=== PATIENT | female | born 1985 ===

== ENCOUNTER → 2022-06-07 14:06 | Outpatient (BNVA) | payer OTHER, SELFPAY | PROVIDERS: PCP Internal Medicine; Visit Provider Nurse Practitioner Family | DX: G43.109 Migraine with aura, not intractable, without status migrainosus (principal); F07.81 Postconcussional syndrome; H53.9 Unspecified visual disturbance | CPT/HCPCS: 99212 ==

== ENCOUNTER 2023-10-21 19:13 | Emergency (ER) | payer OTHER, SELFPAY ==
--- NOTE | 2023-10-21 | ECG_ITS ---
Test Reason : intox Blood Pressure : / mmHG Vent. Rate : 072 BPM Atrial Rate : 072 BPM P-R Int : 164 ms QRS Dur : 080 ms QT Int : 424 ms P-R-T Axes : 066 081 061 degrees QTc Int : 464 ms Normal sinus rhythm Septal infarct , age undetermined Abnormal ECG No previous ECGs available Referred By: Generic ED Physician Electronically Signed By:Eamon Figueroa
[2023-10-21 19:48] VITALS: BP 103/60; PULSE 94; RESP 18; TEMP 36.8; O2SAT 100; BMI 21.7
[2023-10-21 20:41] LABS: MANUAL DIFF FLAG NO
[2023-10-21 20:42] LABS: Basophils Percent Auto 0.8 % (0-2); Eosinophils Absolute Auto 0.3 X10*3/uL (0.0-0.4); Eosinophils Percent Auto 5.7 % (0-4); Hematocrit 34.7 % (37.0-47.0); Hemoglobin 11.5 g/dl (12.0-16.0); Imm Gran Abs Auto 0.02 X10*3/uL (0.00-0.03); Imm Gran Pct Auto 0.4 % (0.0-0.4); Lymphocytes Absolute Auto 2.4 X10*3/uL (1.2-4.9); Lymphocytes Percent Auto 44.9 % (20-40); Mean Corpuscular HGB Conc 33.1 g/dl (31.0-35.0); Mean Corpuscular Hemoglobin 25.3 pg (27.0-33.0); Mean Corpuscular Volume 76.4 fL (80.0-98.0); Mean Platelet Volume 9.5 fL (9.4-12.3); Monocytes Absolute Auto 0.5 X10*3/uL (0.1-1.2); Monocytes Percent Auto 8.5 % (2-11); Neutrophils Absolute Auto 2.1 x10*3/uL (2.0-8.3); Neutrophils Percent Auto 39.7 % (45-73); Platelet Count 300 X10*3/uL (160-400); Red Blood Count 4.54 X10*6/uL (4.20-5.50); Red Cell Distribution Width 15.3 % (11.0-16.0); White Blood Count 5.3 X10*3/uL (4.8-10.8)
[2023-10-21 20:57] LABS: Alanine Aminotransferase 25 U/L (0-31); Albumin Level 3.9 g/dL (3.5-5.0); Alkaline Phosphatase 121 U/L (39-117); Anion Gap 13 (12-20); Aspartate Amino Transferase 41 U/L (5-31); Bilirubin Total 0.2 mg/dL (0.0-1.0); Blood Urea Nitrogen 8 mg/dL (9-16); Calcium 8.7 mg/dL (8.4-10.2); Carbon Dioxide 26 mmol/L (22-29); Chloride 107 mmol/L (96-108); Creatinine Clr Calc Pharmacy 83.8; Estimated Glomerular Filt Rate > 60; Glucose Random 108 mg/dL (60-115); Potassium 3.4 mmol/L (3.3-5.1); Sodium 143 mmol/L (135-145); Total Protein 7.4 g/dL (6.5-8.0)
[2023-10-21 22:11] VITALS: PULSE 92
--- NOTE | 2023-10-21 22:12 | PC.NURSE ---
ciwa 0 cows 2. pt reported some body aches however no other sx. awaiting primary eval by ed provider. water provided per request.
[2023-10-22] VITALS (7 sets, daily range): BP systolic 116–159; BP diastolic 74–92; PULSE 61–82; RESP 16–18; TEMP 36.6–37.1; O2SAT 97–100
--- NOTE | 2023-10-22 00:39 | MHC.EDTECH ---
PT RESTING IN BED RESPIRATIONS EVEN AND UNLABORED PT EXPRESSES NO OTHER NEEDS AT THIS TIME PLAN OF CARE ONGOING
--- NOTE | 2023-10-22 01:53 | ED.ALCOHOL ---
HPI - Alcohol General Chief Complaint: ETOH/Substance Use Stated Complaint: alchohol treatment Time Seen by Provider: 10/21/23 22:23 Source: patient Mode of arrival: ambulatory Limitations: no limitations History of Present Illness HPI narrative: Patient comes to the emergency room requesting alcohol detox. Patient states that she started a drinker, drinks up to a gal of liquor a day. Patient drank prior to arrival to emergency room. Patient denies SI or HI, patient denies using any other drugs. Related Data Previous Rx's Medication Instructions Recorded amitriptyline 25 mg tablet 12.5 - 25 mg (0.5 - 1 x 25 mg) PO 06/07/22 BEDTIME 30 days #30 tabs ubrogepant 100 mg tablet (Ubrelvy) 50 - 100 mg (0.5 - 1 x 100 mg) PO 06/25/22 ONCE PRN migraine headache 30 days #16 tabs erenumab-aooe 140 mg/mL 140 mg subcut .COMPLEX 30 days #1 01/03/23 subcutaneous auto-injector mL (Aimovig Autoinjector) Allergies Allergy/AdvReac Type Severity Reaction Status Date / Time Seasonal Allergies Allergy Mild Unknown Verified 10/21/23 19:53 Review of Systems Review of Systems: Constitutional : No Weight loss, No Fever, No Chills, No Night Sweats, No Fatigue, No Malaise ENT/Mouth : No Hearing loss, No Ear Pain, No Nasal Congestion, No Sinus Pain, No Hoarseness, No sore throat, No Rhinorrhea, No Swallowing Difficulty Eyes: No Eye Pain, No Swelling, No Redness, No Foreign Body, No Discharge, No Vision Changes Cardiovascular : No Chest Pain, No SOB, No Dyspnea on Exertion, No Orthopnea, No Edema, No Palpitations Respiratory : No Cough, No Sputum, No Wheezing, No Smoke Exposure, No Dyspnea Gastrointestinal : No Nausea, No Vomiting, No Diarrhea, No Constipation, No abdominal Pain, No Hematochezia, No Melena Genitourinary : no irregular bleeding, No Dysuria, No Urinary Frequency, No Hematuria, No Urinary Incontinence, No Urgency, No Flank Pain, No Urinary Flow Changes, No Hesitancy Musculoskeletal : No joint pain, No Myalgias, No Joint Swelling Skin : No Skin Lesions, No rash Neuro : No Weakness, No Numbness, No Paresthesias, No Loss of Consciousness, No Dizziness, No Headache Psych : No Anxiety/Panic, No Depression, No SI/HI/AH/VH, admits to alcohol abuse Heme/Lymph: No Bruising, No Bleeding,No Lymphadenopathy Endocrine : No Polyuria, No Polydipsia, No Temperature Intolerance [facility] Past Medical History Medical History HTN (hypertension) Sleep difficulties Depression delivery delivered Social History Social History (Updated 06/07/22 @ 14:20 by Nancy Davis CMA) Alcohol intake: current Alcohol intake frequency: holidays/special occasions only Alcohol type: hard liquor Patient Tobacco Use Status: Former Tobacco user Quit Date: 05/24/22 Smoked in Last 30 Days: Yes Use of substances other than those prescribed or required for medical reasons: Yes Substance Use Type: Crack/Cocaine and Marijuana Advance Directives: No Advance Directives Information Provided: No Physical Exam ED Vital Signs: Vital Signs - 24 hr 10/21/23 19:48 10/22/23 00:14 Temperature 98.2 F 98.2 F Pulse Rate 94 82 Respiratory Rate 18 17 Blood Pressure 103/60 116/74 Pulse Oximetry 100 98 Oxygen Delivery Method Room Air Room Air BMI result Body Mass Index 21.7 Const Other: Appearance: Alert. Oriented X3. Intoxicated Eyes: Pupils equal, round and reactive to light. ENT: Pharynx normal. Neck: Normal inspection. Neck supple. No lymph nodes noted. No crepitus CVS: Normal heart rate and rhythm. Pulses normal. Normal S1 and S2 Respiratory: No respiratory distress. Breath sounds normal. No Wheezing. No rales Abdomen: Soft and nontender. No rigidity. No distention. Skin: Skin warm and dry. Normal skin color. Normal skin turgor. Extremities: No lower extremity edema. No Lacerations. No Rash Neuro: Oriented X 3. No motor deficit. No sensory deficit. Moving all extremities. No slurred speech. CN 2 through 12 grossly intact Psych: calm, cooperative, intoxicated Course Course Course Narrative: -patient is calm, cooperative, intoxicated but coherent, requesting help for detox Medical Decision Making Medical Decision Making [facility] Narrative: -my interpretation of labs: Hematology at baseline, chemistry unremarkable, AST and alk-phos mildly bumped -care team consult pending -physician observation started at 00:05 -patient is not SI or HI, no need for a section 12. Differential Diagnosis Differential Diagnoses: The differential diagnosis associated with the presentation includes (Alcohol abuse, polysubstance abuse, anxiety, depression) Admission/Observation Consideration of admission/observation: Escalation of care including admission/observation considered (Patient is under physician observation, waiting for the care team to determine patient's disposition.) Lab Data 10/21/23 20:38 10/21/23 20:38 Labs: Lab Results 10/21/23 Range/Units 20:38 WBC 5.3 (4.8-10.8) X10*3/uL RBC 4.54 (4.20-5.50) X10*6/uL Hgb 11.5 L (12.0-16.0) g/dl Hct 34.7 L (37.0-47.0) % MCV 76.4 L (80.0-98.0) fL MCH 25.3 L (27.0-33.0) pg MCHC 33.1 (31.0-35.0) g/dl RDW 15.3 (11.0-16.0) % Plt Count 300 (160-400) X10*3/uL MPV 9.5 (9.4-12.3) fL Immature Gran % (Auto) 0.4 (0.0-0.4) % Neut % (Auto) 39.7 L (45-73) % Lymph % (Auto) 44.9 H (20-40) % [place] % (Auto) 8.5 (2-11) % Eos % (Auto) 5.7 H (0-4) % Baso % (Auto) 0.8 (0-2) % Lymph # (Auto) 2.4 (1.2-4.9) X10*3/uL [place] # (Auto) 0.5 (0.1-1.2) X10*3/uL Eos # (Auto) 0.3 (0.0-0.4) X10*3/uL Baso # (Auto) 0.0 (0.0-0.2) X10*3/uL Abs Immat Gran (auto) 0.02 (0.00-0.03) X10*3/uL Absolute Neuts (auto) 2.1 (2.0-8.3) x10*3/uL Absolute Nucleated RBC 0.000 (0.0-0.012) X10*3/uL Nucleated RBC % (auto) 0.0 (0.0-0.2) /100WBC Sodium 143 (135-145) mmol/L Potassium 3.4 (3.3-5.1) mmol/L Chloride 107 (96-108) mmol/L Carbon Dioxide 26 (22-29) mmol/L Anion Gap 13 (12-20) BUN 8 L (9-16) mg/dL Creatinine 0.68 (0.5-1.4) mg/dL Estim Creat Clear Calc 83.8 Estimated GFR > 60 Random Glucose 108 (60-115) mg/dL Calcium 8.7 (8.4-10.2) mg/dL Total Bilirubin 0.2 (0.0-1.0) mg/dL AST 41 H (5-31) U/L ALT 25 (0-31) U/L Alkaline Phosphatase 121 H (39-117) U/L Total Protein 7.4 (6.5-8.0) g/dL Albumin 3.9 (3.5-5.0) g/dL Discharge Plan Discharge Clinical Impression: Alcohol abuse Patient Disposition: Still a Patient Prescriptions: No Action Ubrelvy 100 mg tablet 50 - 100 mg PO ONCE PRN (Reason: migraine headache) 30 Days Qty: 16 3RF Rx Instructions: take at onset of migraine, may repeat in 2hrs (may take w/ Ibuprofen) Aimovig Autoinjector 140 mg/mL auto-injector 140 mg subcut .COMPLEX 30 Days Qty: 1 11RF Rx Instructions: 140 mg subcut monthly; amitriptyline 25 mg tablet 12.5 - 25 mg PO BEDTIME 30 Days Qty: 30 3RF
[2023-10-22 02:16] LABS: Ethanol 174 mg/dL
--- NOTE | 2023-10-22 07:33 | PC.NURSE ---
pt currently resting on stretcher in no apparent distress at this time w/ her eyes closed. no sob/wob noted. respirations even and unlabored. CARE team eval remains pending at this time. plan of care ongoing.
--- NOTE | 2023-10-22 09:48 | MHC.RECOVRN ---
Addendum entered by Kasey Segovia 10/22/23 11:46: Met with pt to follow up after referral placed to [facility]. Pt laying down, awake, alert, easily engages in conversation, appears comfortable. Pt reports alcohol use, 1-3 gallons daily, vodka, rum, whatever. Pt reports desire for local ATS only. Educated pt on process, pt denies questions or concerns. Awaiting notification on bed availability from [facility]. RN aware. Original Note: Pts referral sent to [facility] ATS.
--- NOTE | 2023-10-22 10:23 | PC.NURSE ---
vss and up to date. urine obtained/sent to lab. updated CIWA = 7. pt speaking w/ swimming coach or instructor PRATIMA Parks at this time. pt aware of plan of care going forward. resting comfortably on stretcher in no apparent distress. respirations remain even and unlabored. plan of care ongoing.
[2023-10-22 11:42] LABS: UPreg QC Valid YES; Urine Pregnancy NEGATIVE (NEGATIVE)
[2023-10-22 11:44] LABS: WBC Urine 0-5 /HPF (0-5)
[2023-10-22 11:46] LABS: Bacteria Urine 1+ (None Seen); Hyaline Casts Urine 0-2 /LPF (0-2)
[2023-10-22 11:48] LABS: Appearance Urine Cloudy; Color Urine Orange; Glucose Urine UA Negative (Negative); Leukocyte Esterase Urine Small (1+) (Negative); Nitrite Urine Positive (Negative); Specific Gravity - Urine >= 1.030 (1.005-1.025); UACC Culture Trigger YES; UMIC TRIGGER UACC YES; Urine Blood Large (3+) (Negative); Urine Ketones Trace mg/dL (Negative); Urine Protein 30 (1+) mg/dL (Neg-Trace)
[2023-10-22 13:18] LABS: Amphetamine Screen Urine Not Detected (Not Detect); Barbiturates, Urine Not Detected (Not Detect); Benzodiazepines Screen Urine Not Detected (Not Detect); Cannabinoid Screen Urine POSITIVE (Not Detect); Cocaine Screen Urine POSITIVE (Not Detect); Fentanyl, urine Not Detected (Not Detect); Opiate Screen Urine Not Detected (Not Detect); Phencyclidine Screen Urine Not Detected (Not Detect)
--- NOTE | 2023-10-22 14:46 | MHC.RECOVRN ---
Met with pt to inform there is no bed availability today at [facility]. Pt provided with resources, including [facility] information. Pt encouraged to present as walk in at 8AM if desired. Pt denies questions or concerns for t/w. Provider and RN aware.
[2023-10-22] MEDS: chlordiazePOXIDE HCl 25 MG CAPSULE PO (14:59)
--- NOTE | 2023-10-22 15:27 | PC.NURSE ---
vss and up to date prior to d/c. updated CIWA = 5.
== END 2023-10-22 15:29 | disposition home or self-care (01) ==
PROVIDERS: Emergency Provider Emergency Medicine
DX: F10.10 Alcohol abuse, uncomplicated (principal); Y90.9 Presence of alcohol in blood, level not specified; I10 Essential (primary) hypertension
CPT/HCPCS: 36415; 80053; 80307; 81001; 81025; 85025; 87086; 93005; 99285

== ENCOUNTER → 2023-10-21 20:58 | Outpatient (BNV) | payer OTHER, SELFPAY | PROVIDERS: Emergency Provider Emergency Medicine; Visit Provider Internal Medicine Cardiovascular Disease | DX: R94.31 Abnormal electrocardiogram [ECG] [EKG] (principal) | CPT/HCPCS: 93010 ==

== ENCOUNTER 2025-05-04 09:42 | Emergency (ER) | payer OTHER, SELFPAY ==
[2025-05-04] VITALS (7 sets, daily range): BP systolic 142–203; BP diastolic 74–101; PULSE 74–82; RESP 14–20; TEMP 36.3–36.9; O2SAT 96–99; BMI 31.5
--- NOTE | ~2025-05-04 | CT_ITS ---
EXAMINATION: CT ABDOMEN AND PELVIS WITH CONTRAST CLINICAL INFORMATION: Right upper quadrant pain. Suprapubic pain. COMPARISON: None available. TECHNIQUE: Multidetector volumetric images were obtained from the superior aspect of the liver through the pubic symphysis following administration 85 mL of Omnipaque 350 intravenous contrast. Sagittal and coronal reformatted images were obtained on the technologist's workstation. Oral contrast: No This CT examination was performed using dose optimization techniques as appropriate, variously including the following: *Automated exposure control *Adjustment of mA and/or kV according to patient size (this includes techniques or standardized protocols for targeted exams where dose is matched to indication/reason for exam; i.e. extremities or head) *Use of iterative reconstruction technique FINDINGS: LUNG BASES: The visualized lung bases are unremarkable. LIVER, GALLBLADDER, AND BILIARY TREE: Right lobe measures 16.7 cm. No focal lesions. No biliary duct dilatation. Gallbladder appears unremarkable. PANCREAS: Unremarkable. No acute inflammatory changes. SPLEEN: Unremarkable. ADRENAL GLANDS: Unremarkable. KIDNEYS AND URETERS: Symmetric enhancement. No hydronephrosis. No ureteral or renal calculi. Small hypodense right renal lesion, probable cyst. BLADDER: Unremarkable. GASTROINTESTINAL TRACT: Nonobstructive bowel gas pattern. Scattered colonic diverticuli. No colonic wall thickening or pericolonic inflammatory changes. Appendix appears unremarkable. No free fluid. No free air. ABDOMINAL WALL: No significant hernia is appreciated. LYMPH NODES: No pathologically enlarged lymph nodes. VASCULAR: Normal caliber aorta. Hepatic and portal veins are enhancing. PELVIC VISCERA: Unremarkable. OSSEOUS STRUCTURES: No aggressive bony lesions. CT/CT abdomen pelvis w IV con IMPRESSION: * No acute intra-abdominal findings identified. Cause of the patient's symptoms has not been determined. Follow-up imaging as clinically indicated. * Appendix appears unremarkable. * Additional findings as above. Fleischner guidelines were followed. Electronically signed by: Serge Vargas MD 05/04/2025 12:03 PM EDT
--- NOTE | ~2025-05-04 | XR_ITS ---
EXAMINATION: XR CHEST CLINICAL INFORMATION: CP COMPARISON: None available. TECHNIQUE: 2 views of the chest were obtained. FINDINGS: The cardiac, hilar, and mediastinal contours are normal. The lungs are clear bilaterally. There is no pneumothorax or pleural effusion. There is no focal osseous or soft tissue abnormality. XR/XR chest 2V IMPRESSION: Normal chest. Electronically signed by: Jerod Knapp MD 05/04/2025 03:19 PM EDT
[2025-05-04 10:17] LABS: MANUAL DIFF FLAG NO
[2025-05-04 10:18] LABS: Hematocrit 35.6 % (37.0-47.0); Hemoglobin 12.1 g/dl (12.0-16.0); Imm Gran Abs Auto 0.01 X10*3/uL (0.00-0.03); Imm Gran Pct Auto 0.1 % (0.0-0.4); Lymphocytes Absolute Auto 1.6 X10*3/uL (1.2-4.9); Mean Corpuscular HGB Conc 34.0 g/dl (31.0-35.0); Mean Corpuscular Hemoglobin 24.9 pg (27.0-33.0); Mean Corpuscular Volume 73.3 fL (80.0-98.0); NRBC Abs Auto 0.000 X10*3/uL (0.0-0.012); NRBC Pct Auto 0.0 /100WBC (0.0-0.2); Platelet Count 250 X10*3/uL (160-400); Red Blood Count 4.86 X10*6/uL (4.20-5.50); White Blood Count 7.6 X10*3/uL (4.8-10.8)
--- NOTE | 2025-05-04 10:25 | ED.GENADULT ---
HPI - General Adult General Chief complaint: Abdominal Pain Stated complaint: asthma, abdominal pain Time Seen by Provider: 05/04/25 10:24 Source: patient and RN notes reviewed Mode of arrival: ambulatory Limitations: no limitations History of Present Illness HPI narrative: 40 yo female with PMH of HTN, migraine with aura, asthma, and autoimmune disorder presents to the ED with nausea, vomiting, diarrhea, and diffuse abdominal pain since Sunday (05/01/25). Patient reports inability to tolerate oral intake, including water. Patient also notes foul-smelling urine and chills. Denies fever, hematemesis, dark stool, urinary frequency, urgency, or burning with urination. Additionally reports mild shortness of breath and chest discomfort. No recent travel, surgeries, or sick contacts. Related Data Previous Rx's ?Medication ?Instructions ?Recorded amitriptyline 25 mg tablet 12.5 - 25 mg (0.5 - 1 x 25 mg) PO 06/07/22 BEDTIME 30 days #30 tabs ubrogepant 100 mg tablet (Ubrelvy) 50 - 100 mg (0.5 - 1 x 100 mg) PO 06/25/22 ONCE PRN migraine headache 30 days #16 tabs erenumab-aooe 140 mg/mL 140 mg subcut .COMPLEX 30 days #1 01/03/23 subcutaneous auto-injector mL (Aimovig Autoinjector) ondansetron 4 mg disintegrating 4 mg PO Q6H PRN nausea and 05/04/25 tablet vomiting #10 tabs Allergies Allergy/AdvReac Type Severity Reaction Status Date / Time Seasonal Allergies Allergy Mild Unknown Verified 05/04/25 10:01 Review of Systems Review of Systems: Yes all other systems are reviewed and are negative Constitutional: Constitutional: Reports as per HPI [facility] Past Medical History Medical History HTN (hypertension) Sleep difficulties Depression delivery delivered Social History Social History (Updated 06/07/22 @ 14:20 by Nancy Davis CMA) Alcohol intake: current Alcohol intake frequency: holidays/special occasions only Alcohol type: hard liquor Patient Tobacco Use Status: Former Tobacco user Substance Use Type: Crack/Cocaine and Marijuana Physical Exam ED Vital Signs: Vital Signs - 24 hr 05/04/25 10:00 05/04/25 12:09 05/04/25 14:00 Temperature 97.3 F 98.2 F Pulse Rate 79 82 82 Respiratory Rate 20 16 14 Blood Pressure 203/86 H 146/78 H 149/88 H Pulse Oximetry 99 96 99 Oxygen Delivery Method Room Air Room Air Room Air 05/04/25 14:32 05/04/25 14:35 05/04/25 14:36 Temperature Pulse Rate 76 80 74 Respiratory Rate Blood Pressure 145/74 H 144/81 H 143/101 H Pulse Oximetry Oxygen Delivery Method BMI result Body Mass Index 31.5 Const General: alert and awake Orientation/consciousness: patient oriented x3 Limitations: no limitations HENMT Head: Yes normal to inspection, Yes normocephalic and Yes atraumatic Ears: hearing grossly normal bilaterally General nose exam: Normal external nose present Face and sinus: Yes normal facial exam Mouth: Normal oral and palatal mucosa present, oropharynx normal and moist mucous membranes Throat: Yes posterior oropharynx normal Eyes General: appearance normal, both eyes and all related structures Eyelids: Yes eyelids normal Conjunctivae: conjunctivae normal Sclerae: sclerae normal Pupils: Equal, round and reactive pupils present EOM: EOMs intact bilaterally Neck Neck: Yes normal visual inspection, Yes full ROM and Yes no lymphadenopathy Lymphatic: no lymphadenopathy noted Chest Chest palpation & inspection: normal inspection of the chest Resp Effort & Inspection: normal respiratory effort and able to speak in complete sentences Auscultation: clear to auscultation bilaterally, no crackles, no rales, no rhonchi and no wheezes Cardio Rate: regular rate Rhythm: regular rhythm Heart sounds: S1 normal heart sound present and S2 normal heart sound present GI Inspection: Yes normal to inspection Palpation (GI): Soft to palpation and Tenderness to palpation present (GI) Auscultation: normal bowel sounds Skin General skin exam: no rashes or lesions noted Trauma: no lacerations or abrasions Wounds: no wounds Neuro General: patient oriented x3 Cranial nerves: Yes Equal, round and reactive pupils present Extrem General: Yes normal to inspection Right upper extremity: normal to inspection Left upper extremity: normal to inspection Right lower extremity: normal to inspection Left lower extremity: normal to inspection Medications Administered Discontinued Medications Generic Name Dose Route Start Last Admin Trade Name Freq PRN Reason Stop Dose Admin Sodium Chloride 1,000 mls @ 999 mls/hr 05/04/25 10:55 05/04/25 12:33 Ns IV 10/06/25 11:55 Infused .Q1H1M ONE Infusion Acetaminophen 1,000 mg in 100 mls @ 400 mls/hr 05/04/25 10:55 05/04/25 11:33 Ofirmev IV 05/04/25 11:09 Infused ONCE ONE Infusion Iohexol 100 ml 05/04/25 11:33 05/04/25 11:34 Iohexol 350 Mg/Ml 100 Ml Infus..Btl IV 05/04/25 11:34 85 ml ONCE ONE Administration Ondansetron HCl 4 mg 05/04/25 10:55 05/04/25 11:18 Ondansetron Hcl 4 Mg/2 Ml Vial IVPUSH 05/04/25 10:56 4 mg ONCE ONE Administration Ondansetron HCl 4 mg 05/04/25 12:33 05/04/25 12:56 Ondansetron Hcl 4 Mg/2 Ml Vial IVPUSH 05/04/25 12:34 4 mg ONCE ONE Administration Medical Decision Making Medical Decision Making MDM Narrative: 40 yo female with PMH of HTN, migraine with aura, asthma, and autoimmune disorder presents to the ED with several days of nausea, vomiting, diarrhea, and diffuse abdominal tenderness. Most likely diagnosis is viral gastroenteritis given the combination of nausea, vomiting, diarrhea, abdominal pain, and inablity to tolerative oral fluids. Urinary tract infection or pyelonephritis also considered given foul-smelling urine and abdominal pain. Electrolyte imbalance considered due to persistent vomiting and poor intake. Asthma exacerbation was considered but less likely as respiratory exam and oxygenation are WNL. Intra-abdominal pathology such as cholecystitis, appendicitis, or bowel obstruction considered but less likely given different rather than localized pain and ongoing diarrhea. 12:33 PM 05/04/2025 (Nakia Adorno PA-C): Patient re-evaluated, feeling better however still continues to have some nausea. Labs returned, she has no leukocytosis, stable H&H, chemistry with no significant electrolyte derangement. Urine does not appear to be infected. CT abdomen and pelvis revealed no acute findings. Will treat with more IV antiemetics. We will continue to monitor. Pt feeling much better, tolerating PO. Overall workup reassuring. Given return precautions. Stable for d.c Differential Diagnosis Differential Diagnoses: The differential diagnosis associated with the presentation includes see above Admission/Observation Consideration of admission/observation: Escalation of care including admission/observation considered Lab Data [facility] Lab Attestation statement: I reviewed the patient's lab results. see mdm 05/04/25 10:12 05/04/25 10:12 Labs: Lab Results 05/04/25 05/04/25 Range/Units 10:12 11:10 WBC 7.6 (4.8-10.8) X10*3/uL RBC 4.86 (4.20-5.50) X10*6/uL Hgb 12.1 (12.0-16.0) g/dl Hct 35.6 L (37.0-47.0) % MCV 73.3 L (80.0-98.0) fL MCH 24.9 L (27.0-33.0) pg MCHC 34.0 (31.0-35.0) g/dl RDW 14.4 (11.0-16.0) % Plt Count 250 (160-400) X10*3/uL MPV 9.3 L (9.4-12.3) fL Immature Gran % (Auto) 0.1 (0.0-0.4) % Neut % (Auto) 67.1 (45-73) % Lymph % (Auto) 21.4 (20-40) % [place] % (Auto) 5.4 (2-11) % Eos % (Auto) 5.3 H (0-4) % Baso % (Auto) 0.7 (0-2) % Lymph # (Auto) 1.6 (1.2-4.9) X10*3/uL [place] # (Auto) 0.4 (0.1-1.2) X10*3/uL Eos # (Auto) 0.4 (0.0-0.4) X10*3/uL Baso # (Auto) 0.1 (0.0-0.2) X10*3/uL Abs Immat Gran (auto) 0.01 (0.00-0.03) X10*3/uL Absolute Neuts (auto) 5.1 (2.0-8.3) x10*3/uL Absolute Nucleated RBC 0.000 (0.0-0.012) X10*3/uL Nucleated RBC % (auto) 0.0 (0.0-0.2) /100WBC Sodium 138 (135-145) mmol/L Potassium 3.9 (3.3-5.1) mmol/L Chloride 106 (96-108) mmol/L Carbon Dioxide 27 (22-29) mmol/L Anion Gap 9 L (12-20) BUN 17 H (9-16) mg/dL Creatinine 0.65 (0.5-1.4) mg/dL Estim Creat Clear Calc 105.9 Estimated GFR > 60 Random Glucose 83 (60-115) mg/dL Calcium 8.3 L (8.4-10.2) mg/dL Magnesium 1.9 (1.6-2.6) mg/dL Total Bilirubin 0.7 (0.0-1.0) mg/dL AST 40 H (5-31) U/L ALT 28 (0-31) U/L Alkaline Phosphatase 87 (39-117) U/L Total Protein 7.2 (6.5-8.0) g/dL Albumin 3.9 (3.5-5.0) g/dL Beta HCG, Quant < 2 mIU/mL Urine Color Yellow Urine Appearance Clear Urine pH >= 9.0 (5.0-9.0) Ur Specific [place] 1.025 (1.005-1.025) Urine Protein Trace (Neg-Trace) mg/dL Urine Glucose (UA) Negative (Negative) mg/dL Urine Ketones Negative (Negative) mg/dL Urine Blood Negative (Negative) Urine Nitrite Negative (Negative) Ur Leukocyte Esterase Negative (Negative) Urine RBC 0-2 (0-2) /HPF Urine WBC 0-5 (0-5) /HPF Ur Squamous Epith Cells 0-2 (0-2) /HPF Urine Bacteria None Seen (None Seen) Hyaline Casts 0-2 (0-2) /LPF Urine Test NEGATIVE (NEGATIVE) Independent Interpretation I performed an independent interpretation of an: EKG Interpretation: EKG NSR at 69bpm, ME interval 168, QT/QTC 402/430. No STEMI Radiology Impression Discussion of test interpretation with radiology: I have reviewed the radiologist's reading. Radiologist Impression: [address] [address] XRay Report Signed Patient: Merle Khalil MR#: [id number] : 1985 Acct:[id number] Age/Sex: 40 / F ADM Date: 05/04/25 Loc: HO.ED Attending Dr: Ordering Physician: Nakia Adorno Date of Service: 05/04/25 Procedure(s): XR chest 2V Accession Number(s): [id number] cc: [facility]; Nakia Adorno~ Reason for Exam: CP EXAMINATION: XR CHEST CLINICAL INFORMATION: CP COMPARISON: None available. TECHNIQUE: 2 views of the chest were obtained. FINDINGS: The cardiac, hilar, and mediastinal contours are normal. The lungs are clear bilaterally. There is no pneumothorax or pleural effusion. There is no focal osseous or soft tissue abnormality. XR/XR chest 2V IMPRESSION: Normal chest. Electronically signed by: Jerod Knapp MD 05/04/2025 03:19 PM EDT RP Dictated By: Jerod Knapp MD CT/CT abdomen pelvis w IV con IMPRESSION: * No acute intra-abdominal findings identified. Cause of the patient's symptoms has not been determined. Follow-up imaging as clinically indicated. * Appendix appears unremarkable. * Additional findings as above. Fleischner guidelines were followed. Electronically signed by: Serge Vargas MD 05/04/2025 12:03 PM EDT RP Dictated By: Serge Vargas MD Discharge Plan Discharge Clinical Impression: Nausea & vomiting Patient Disposition: Home, Self-Care Instructions: Acute Nausea and Vomiting (ED) Additional Instructions: You were seen in the emergency department due to nausea, vomiting, and diarrhea. Your workup today was reassuring. Your CAT scan was normal. Your urine does not appear to be infected. You may have gotten the GI bug or you may have eaten some unusual food that caused you to have the symptoms. Stick to a bland diet over the next couple of days. Avoid spicy or fried foods. Avoid dairy. Sticking to a diet consisting of bananas, rice, applesauce, toast can help. Advance your diet as tolerated. Please drink plenty of fluids get plenty of rest. Take Zofran as needed for nausea. If any new or worsening symptoms occur including but not limited to severe chest pain, inability to eat or drink secondary to persistent nausea and vomiting, please return for re-evaluation. Prescriptions: New ondansetron 4 mg tablet,disintegrating 4 mg PO Q6H PRN (Reason: nausea and vomiting) Qty: 10 0RF No Action Ubrelvy 100 mg tablet 50 - 100 mg PO ONCE PRN (Reason: migraine headache) 30 Days Qty: 16 3RF Rx Instructions: take at onset of migraine, may repeat in 2hrs (may take w/ Ibuprofen) Aimovig Autoinjector 140 mg/mL auto-injector 140 mg subcut .COMPLEX 30 Days Qty: 1 11RF Rx Instructions: 140 mg subcut monthly; amitriptyline 25 mg tablet 12.5 - 25 mg PO BEDTIME 30 Days Qty: 30 3RF Stand Alone Forms: Work/School Release Interventions: ED Discharge Assessment Last Done: 05/04/25 15:51 Discharge Date/Time: 05/04/25 15:53 Print Language: Persian
[2025-05-04 10:31] LABS: Alanine Aminotransferase 28 U/L (0-31); Albumin Level 3.9 g/dL (3.5-5.0); Alkaline Phosphatase 87 U/L (39-117); Anion Gap 9 (12-20); Aspartate Amino Transferase 40 U/L (5-31); Blood Urea Nitrogen 17 mg/dL (9-16); Calcium 8.3 mg/dL (8.4-10.2); Carbon Dioxide 27 mmol/L (22-29); Chloride 106 mmol/L (96-108); Creatinine Clr Calc Pharmacy 105.9; Estimated Glomerular Filt Rate > 60; Potassium 3.9 mmol/L (3.3-5.1); Sodium 138 mmol/L (135-145); Total Protein 7.2 g/dL (6.5-8.0)
--- NOTE | 2025-05-04 10:48 | ECG_ITS ---
Test Reason : CHEST PAIN Blood Pressure : */* mmHG Vent. Rate : 69 BPM Atrial Rate : 69 BPM P-R Int : 168 ms QRS Dur : 72 ms QT Int : 402 ms P-R-T Axes : 39 63 26 degrees QTcB Int : 430 ms Normal sinus rhythm Normal ECG When compared with ECG of 21-Oct-2023 20:58, Criteria for Septal infarct are no longer Present Referred By: Nakia Adorno Electronically Signed By: LONNIE JULIAN MD
[2025-05-04 11:19] LABS: Appearance Urine Clear; Glucose Urine UA Negative (Negative); PH >= 9.0 (5.0-9.0); Specific Gravity - Urine 1.025 (1.005-1.025)
[2025-05-04 11:22] LABS: UPreg QC Valid YES
[2025-05-04] MEDS: iohexoL 350 MG/ML 100 ML INFUS..BTL IV (11:34)
--- OUTSIDE RECORDS SUMMARY | 2025-05-04 12:15 | XMS_ITS | Clinical Summary ---
Author Organization [facility] [address] [facility] Building Address [address] [place] [phone] Phone Care Team Providers Care Face Worker Name Role Phone Nick Hampton MD Primary Care Provider [phone] Allergies Active Allergy Reactions Criticality Noted Date Comments Pollen Extracts 03/22/2021 Medications lamoTRIgine (LaMICtal XR) 25 mg tablet extended release 24hr 24 hr tablet Take 1 tablet (25 mg total) by mouth 1 (one) time each day. Active escitalopram (LEXAPRO) 20 mg tablet Take 1 tablet (20 mg total) by mouth 1 (one) time each day. 4 Active Vraylar 1.5 mg capsule Take 1 capsule (1.5 mg total) by mouth 1 (one) time each day. 4 Active naproxen (NAPROSYN) 500 mg tablet Take 1 tablet (500 mg total) by mouth 2 (two) times a day if needed for mild pain (pain). 60 tablet 1 5 025 Active albuterol HFA (PROAIR HFA ; PROVENTIL HFA ; VENTOLIN HFA) 90 mcg/actuation inhaler INHALE 2 PUFFS BY MOUTH EVERY 4 HOURS IF NEEDED FOR WHEEZING 6.7 g 5 Active albuterol HFA (PROAIR HFA ; PROVENTIL HFA ; VENTOLIN HFA) 90 mcg/actuation inhaler Inhale 2 puffs by mouth every 4 (four) hours if needed for wheezing. 6.7 g 1 5 025 Discontinued Active Problems Problem Noted Date Diagnosed Date Bacterial vaginosis 07/05/2021 Overview (04/22/2024): After menses Last Assessment & Plan: I explained that since she seems to have her BV after her menses every month, it is reasonable to treat twice during the week of her period to prevent symptoms. She would like to try this. She will send in a MyChart to refill for this once she has completed treatment. She states she normally has enough for about 3-4 uses after she completes treatment. I explained that I do not think her ovarian pain during this time is related to the BV, but that this is likel ovulatory discomfort which is coincident with her BV sx in the one week time frame after her menses. COVID-19 08/23/2020 Positive MONICA (antinuclear antibody) 05/31/2020 Overview (04/22/2024): Dr Mohr Allergic rhinitis 10/16/2019 GERD (gastroesophageal reflux disease) 9 Dysmenorrhea 06/10/2018 Menorrhagia with irregular cycle 06/10/2018 Papanicolaou smear of cervix with atypical squamous cells of undetermined significance (ASC-US) 06/10/2018 Overview (04/22/2024): History: PAP 02/11/2018: ASCUS; High Risk HVP DNA negative. Genital herpes 12/04/2014 Migraine 12/04/2014 Overview (04/22/2024): Dr Singh Bipolar disorder ([facility] V24, [facility] V28) 10/28 Overview (04/22/2024): [facility] Immunizations Immunization Administration Dates Next Due PPD Test 08/05/2018 Tdap Tetanus diptheria acell ular pertussis (Boostrix; Adacel) 7yo and older 12/20/2017,06/16/2013 Surgical History Surgery Date Site/Laterality Comments SECTION PROCEDURE: HISTORICAL DELIVERY TUBAL LIGATION PROCEDURE: HISTORICAL TUBAL LIGATION Medical History Medical History Date Comments Migraine 12/04/2014 DX:Migraine Genital herpes 12/04/2014 DX:Genital herpe s Major depression 11/11/2014 DX:Major depres mundo GERD (gastroesophageal reflux disease) 04/30/2019 DX:GERD (gastroesophageal reflux disease) Tobacco abuse 04/30/2019 DX:Tobacco abuse Helicobacter pylori gastritis 06/02/2019 DX :Helicobacter pylori gastritis Abnormal uterine bleeding 06/10/2018 DX:Abn ormal uterine bleeding Family History Medical History Relation Name Comments Mental illness Brother No Known Problems Father Did not kn ow Other: Lupus Father's side Breast cancer Neg Hx Colon cancer Neg Hx Relation Name Status Comments Brother Alive Daughter 1 Jasmarie Alive Daughter 2 Heaven Alive Father AIDS Father's side Alive Mother AIDS Son 1 Ankur Alive 2, Son 2 Mor Alive Social History Tobacco Use Types Packs/Day Years Used Date Smoking Tobacco: Every Day Cigarettes 1 27.8 Started: 07/31/1997 Smokeless Tobacco: Never Tobacco Cessation:Ready to Q uit: Not Asked; Counseling Given: Not Answered Alcohol Use Standard Drinks/Week Comments Yes 0 (1 standard drink = 0.6 oz pur e alcohol) Comments No Sex and Gender Information Value Date Recorded Sex Assigned at Not on file Legal Sex Female 7:33 PM EST Gender Identity Not on file Sexual Orientation Not on file Obstetrics History Last Filed Vital Signs Vital Sign Reading Time Taken Comments Blood Pressure 137/91 08/12/2024 4:31 PM EST Pulse 76 08/12/2024 4:31 PM EST Temperature - - Respiratory Rate - - Oxygen Saturation - - Inhaled Oxygen Concentration - - Weight 65.3 kg (144 lb) 08/12/2024 4:31 PM EST Height 154.9 cm (5' 1 ) 08/25/2022 1:44 PM EST Body Mass Index 27.21 08/25/2022 1:44 PM EST Plan of Treatment Health Maintenance Due Date Last Done Comments Breast Cancer Screening 1984 HPV Vaccines (1 - 3-dose SCD M series) 01/16/2011 Medicare Annual Wellness Visit 07/01/2022 Depression Screening 07/30/2024 Cervical Cancer Screening: HPV 06/09/2025 06/09/2020 Social Influencers of Health Screening 08/12/2025 08/12/2024 DTaP,Tdap,and Td Vaccines (3 - Td or Tdap) 12/21/2027 12/20/2017, 06/16/2013 Cholesterol Screening (Lipid Panel) 10/08/2029 10/08/2024, 02/09/2022 RSV Immunization Adult Patients (1 - 1-dose 75+ series) 01/16/2059 HIV Screening Completed 08/25/2021 Hepatitis C Screening Completed 08/25/2021 COVID-19 Vaccine Discontinued HIB Vaccines Aged Out No longer eligi ble based on patient's age to complete this topic Hepatitis A Vaccines Discontinued Hepatitis B Vaccines Discontinued IPV Vaccines Aged Out No longer eligi ble based on patient's age to complete this topic Influenza Vaccine Discontinued MMR Vaccines Aged Out No longer eligi ble based on patient's age to complete this topic Meningococcal ACWY Vaccine Aged Out N o longer eligible based on patient's age to complete this topic Meningococcal B Vaccine Aged Out No l onger eligible based on patient's age to complete this topic Pneumococcal Vaccine: Pediatrics (0 to 5 Years) and At-Risk Patients (6 to 49 Years) Discontinued RSV Immunization Patients Under 20 months Aged Out No longer eligible based on patient's age to complete this topic Varicella Vaccines Aged Out No longer eligible based on patient's age to complete this topic Procedures Procedure Name Priority Date/Time Associated Diagnosis Comments LIPID PANEL WITH REFLEX TO DIRECT LDL Routine 10/08/2024 8:59 AM EDT Screening, lipid HEPATITIS C SCREENING Routine 08/25/2021 HIV SCREENING Routine 08/25/2021 HPV Routine 06/09/2020 from Last 3 Months or Most Recently Relevant to Health Maintenance Results * (ABNORMAL) Lipid panel with reflex to direct LDL (10/08/2024 8:59 AM EDT) Cholesterol 211(H) 0 - 200 mg/dL LAB CHEMISTRY METHOD 10/08/2024 1:01 PM EDT [facility] Triglycerides 95 0 - 150 mg/dL LAB CHEMISTRY METHOD 10/08/2024 1:01 PM EDT [facility] HDL 54 >=40 mg/dL LAB CHEMISTRY METHOD 10/08/2024 1:01 PM EDT [facility] LDL Calculated 138(H) 0 - 100 mg/dL LAB CHEMISTRY METHOD 10/08/2024 1:01 PM EDT [facility] VLDL Cholesterol Eder 19 mg/dL LAB CHEMISTRY METHOD 10/08/2024 1:01 PM EDT [facility] Non HDL Chol. (LDL+VLDL) 157(H) <145 mg/dL LAB CHEMISTRY METHOD 10/08/2024 1:01 PM EDT [facility] Chol/HDL Ratio 3.9 0.0 - 4.4 LAB CHEMISTRY METHOD 10/08/2024 1:01 PM EDT [facility] Blood Venous blood specimen / Unknown Venipuncture / Unknown 10/08/2024 8:59 AM EDT 10/08/2024 8:59 AM EDT Nick Hampton MD LAB BLOOD ORDERABLES Final Resu lt [facility] [address] [place] [address], * HIV Screening (08/25/2021) [facility] HIV Screening abstracted Historical All [facility] Final Result * Hepatitis C Screening (08/25/2021) [facility] Hepatitis C Screening abstracted Luis Enrique Carrizales MD HEALTH MAINTENANCE Final Result * Cervical Cancer Screening: HPV (06/09/2020) [facility] Cervical Cancer Screening: HPV negative, abstracted Historical All [facility] [employer] Final Result from Last 3 Months or Most Recently Relevant to Health Maintenance Insurance [employer] Member Subscriber Plan / Payer (Ef fective 2017-Present) Name:Merle Khalil Relation to Subscriber:Self Name:Merle Khalil Payer ID:[id number] Group ID:[id number] Type:Not on file Address: [place] [address] [address] [id number] Care Teams Face Worker Relationship Specialty Start Date End Date Nick Hampton MD [address] [place] [address] [place] [address] PCP - General Internal Medicine 11/24/21
[2025-05-04 12:54] LABS: Magnesium 1.9 mg/dL (1.6-2.6)
== END 2025-05-04 15:53 | disposition home or self-care (01) ==
PROVIDERS: Physician Assistant Medical; Emergency Provider Emergency Medicine
DX: R11.2 Nausea with vomiting, unspecified (principal); R19.7 Diarrhea, unspecified; R10.9 Unspecified abdominal pain; R82.90 Unspecified abnormal findings in urine; D89.89 Other specified disorders involving the immune mechanism, not elsewhere classified; I10 Essential (primary) hypertension
CPT/HCPCS: 36415; 71046; 74177; 80053; 81001; 81025; 83735; 84702; 85025; 93005; 96361; 96374; 96375; 99284; J0131; J2405; Q9967

== ENCOUNTER → 2025-05-04 10:48 | Outpatient (BNV) | payer OTHER, SELFPAY | PROVIDERS: Emergency Provider Emergency Medicine; Visit Provider Radiology Diagnostic Ultrasound | DX: R10.11 Right upper quadrant pain (principal); R10.24 Suprapubic pain; R07.9 Chest pain, unspecified | CPT/HCPCS: 71046; 74177 ==

== ENCOUNTER → 2025-05-04 10:48 | Outpatient (BNV) | payer OTHER, SELFPAY | PROVIDERS: Emergency Provider Emergency Medicine; Visit Provider Internal Medicine Cardiovascular Disease | DX: R07.9 Chest pain, unspecified (principal) | CPT/HCPCS: 93010 ==